=== PATIENT | male | born 1990 | race Hispanic/Latino ===

== ENCOUNTER 2016-12-25 18:41 | Emergency (ER) | payer OTHER ==
[~2016-12-25] VITALS: Ht 170.2 cm; Wt 68.2 kg
[2016-12-25 18:48] VITALS: BP 110/75; PULSE 90; RESP 14; O2SAT 98
--- NOTE | 2016-12-25 19:24 | ED.REPORT ---
HPI-Abd Pain M Under 40 Date of Service Dec 25, 2016 ED Provider: Robert Ingram DO A 26 year old male with a history of smoking and methamphetamine use presents to the ED complaining of abdominal pain. The pain began yesterday after the pt had been eating. He was also drinking alcohol, but this did not seem to exacerbate the pain. By this morning, the pt was unable to eat or drink without vomiting. He also feels bloated but denies hematemesis or any history of appendectomy. Nursing Notes Stated Complaint: ABDOMINAL PAIN, NAUSEA Chief Complaint: Male Abdominal Pain Nursing Notes Reviewed: Yes Allergies: Coded Allergies: No Known Allergies (Unverified , 12/25/16) No Active Prescriptions or Reported Meds General Time Seen by MD: 19:23 Chief Complaint Abdominal pain Hx Obtained From: Patient Arrived By: Walk-in Sudden in Onset?: No Onset Occurred: 1 day ago Symptom Duration: Since onset Recent Healthcare: No recent doctor visit, No recent hospitalization Similar Sx Previous: No Past Medical History Past Medical History None reported. Past Surgical History None reported. Smoking History Current Every Day Smoker Social History Alcohol Use: "Social" Drug Use: Cocaine, Meth Ambulatory Status Independent Review of Systems Review of Systems Note: bloated Constitutional: Denies: Fever Respiratory: Denies: Non-productive cough, Shortness of breath Cardiovascular: Denies: Chest pain GI: Reports: Abdominal pain, Nausea, Vomiting, Denies: Hematemesis Musculoskeletal: Denies: Back pain, Neck pain Complete sys rev & neg: except as marked. Physical Exam Initial Vital Signs Vital Signs (First) Date Time Temp Pulse Resp B/P Pulse Ox O2 Delivery O2 Flow Rate FiO2 12/25/16 18:48 37.7 90 14 110/75 98 Room Air Initial VS: Reviewed General/Constitutional: Awake, Alert Respiratory / Chest: Atraumatic, Breath sounds NL, Breath sounds = bilat, No respiratory distress Cardiovascular: Heart rate NL, Regular rhythm, Heart sounds NL Abdomen: Atraumatic, Soft periumbilical and RLQ tenderness Back: Atraumatic, Full range of motion Head / Eyes: Atraumatic, Normocephalic, PERRL, EOMI ENT: Atraumatic, Airway patent, Mucous membranes moist Neurologic: Oriented X3, Speech NL, No motor deficits, No sensory deficits Neck: Atraumatic, Supple, Full range of motion Upper Extremity / MS: Atraumatic, Full range of motion Lower Extremity / Pelvis / MS: Atraumatic, Full range of motion Skin: Atraumatic, Color NL, No rash, Warm, Dry Psychiatric: Affect NL, Mood NL Interpretation & Diagnostics Lab Results Interpretation Result Diagram: 12/25/16193412/25/161934 Test 12/25/16 19:00 12/25/16 19:35 12/25/16 20:33 Urine Color Yellow (YELLOW) Urine Appearance Clear (CLEAR,HAZY) Urine pH 6.0 (5.0-8.0) Urine Specific [place] 1.020 (1.003-1.035) Urine Protein Negativemg/dL (NEG,TRACE) Urine Glucose (UA) 250mg/dL (NEGATIVE) Urine Ketones Negativemg/dL (NEGATIVE) Urine Occult Blood Negative (NEGATIVE) Urine Nitrite Negative (NEGATIVE) Urine Bilirubin Negative (NEGATIVE) Urine Urobilinogen Normalmg/dL (NORMAL) Urine Leukocyte Esterase Negative (NEGATIVE) Urine RBC 0-2/hpf (0-2) Urine WBC 0-5/hpf (0-5) Urine Epithelial Cells Few/hpf (NONE-MOD) Urine Crystals None seen (NONE SEEN) Urine Bacteria Few/hpf (NONE-FEW) Urine Hyaline Casts None/lpf (NONE) Urine Granular Casts None seen (NONE SEEN) Urine Waxy Casts None seen (NONE SEEN) Urine Red Blood Cell Casts None seen (NONE SEEN) Urine White Blood Cell Casts None seen (NONE SEEN) Urine Mucus Present (None Seen) Urine Trichomonas None seen (NONE SEEN) Urine Yeast None (NONE SEEN) Urinalysis Comment None Urine Culture Reflexed Not indicated Hold Urine Received (Received) White Blood Count 11.3th/mm3 (3.8-10.1) Red Blood Count 5.72mil/mm3 (4.40-5.80) Hemoglobin 16.1g/dL (13.8-17.2) Hematocrit 45.7% (41.0-50.0) Mean Corpuscular Volume 79.9fL (81-100) Mean Corpuscular Hemoglobin 28.1pg (27.0-35.0) Mean Corpuscular Hemoglobin Concent 35.2% (32.0-37.0) Red Cell Distribution Width 12.7% (12.3-15.4) Platelet Count 333bil/L (150-400) Neutrophils (%) (Auto) 89.5% (40-74) Lymphocytes (%) (Auto) 3.7% (14-46) Monocytes (%) (Auto) 6.1% (4-12) Eosinophils (%) (Auto) 0.3% (0-5) Basophils (%) (Auto) 0.1% (0-3) Sodium Level 137mEq/L (134-144) Potassium Level 4.0mEq/L (3.5-5.2) Chloride Level 99mEq/L (97-108) Carbon Dioxide Level 22mmol/L (18-29) Blood Urea Nitrogen 15mg/dL (6-20) Creatinine 0.77mg/dL (0.76-1.27) Estimat Glomerular Filtration Rate 132mL/min (>59) Glucose Level 112mg/dL (60-99) Lactic Acid Level 1.1mmol/L (0.4-2.0) Calcium Level 9.4mg/dL (8.5-10.1) Total Bilirubin 1.0mg/dL (0.0-1.2) Aspartate Amino Transf (AST/SGOT) 22U/L (0-50) Alanine Aminotransferase (ALT/SGPT) 27U/L (0-44) Alkaline Phosphatase 82U/L (25-150) Total Protein 8.0g/dL (6.4-8.4) Albumin 4.8g/dL (3.4-5.0) Lipase 25U/L (13-60) Pulse Oximetry Interpretation Pulse Oximetry Interpretation: 98% on room air Pulse Oximetry: Pulse Ox normal CT Abd / Pelvis Interpretation IMPRESSION: 1. No acute process. No explanation for right lower quadrant pain. 2. Appendix not seen. No evidence of appendicitis. Dictated by: Prosper Parra M.D. on 12/25/2016 at 21:56 Approved by: Prosper Parra M.D. on 12/25/2016 at 21:58 Interpretation / Wet Read by: Interpret - Radiologist Re-Eval/Medical Decision Source of Hx: Old records Re-Evaluation/Progress : Time of Eval: 22:14 Patient Status: Condition improved Re-Evaluation/Progress Note: Pt rechecked, who is resting comfortably. The diagnosis and plan for discharge are discussed. The pt understands and agrees with the plan. All questions are addressed at this time. Counseled Regarding: Diagnosis, Lab results, Need for follow-up, When/why to return to ED Patient Discharge & Departure Primary Impression: Abdominal pain Abdominal location: unspecified location Qualified Code: R10.9 - Unspecified abdominal pain Additional Impression: Vomiting Vomiting type: unspecified Vomiting Intractability: non-intractable Nausea presence: with nausea Qualified Code: R11.2 - Nausea with vomiting, unspecified Disposition: Home Discharge Condition All VS Reviewed: Yes Condition: Stable Patient Instructions: Acute Abdominal Pain (ED), Acute Nausea and Vomiting (ED) , Clear Liquid Diet (ED) Additional Instructions: Your white blood cell count was mildly elevated but your labs were otherwise normal. Your CT scan showed nothing acute but your appendix was not identified. Maintain a clear liquid diet and advance as tolerated. Take 1-2 [place] every 6 hours as needed for severe pain. Do not drive, drink alcohol, or consume acetaminophen while taking the [place]. Start taking Protonix daily. If you are still experiencing pain tomorrow, return to the emergency department for recheck. Otherwise call your primary care physician tomorrow to arrange a follow up appointment this week to discuss your lab findings and H. Pylori testing. Return to the emergency room if you develop any new or worsening symptoms. [facility] Letha Attestation Portions of this note were transcribed by Brea Jackson. I, Dr. Ingram personally performed the history, physical exam and medical decision-making; I reviewed and confirmed the accuracy of the information in the transcribed note. Signed by: Letha Moss, 12/25/2016 and 2225. copies to: [facility] Todd P DO Dec 25, 2016 19:24 BREA JACKSON Dec 25, 2016 20:21
[2016-12-25] MEDS ORDERED: 0.9% Sodium Chloride 1,000 ML IV ONE (19:36)
[2016-12-25] MEDS ORDERED: Pantoprazole 4 mg/mL 10 mL Inj IVPUSH ONE (19:40)
[2016-12-25] MEDS: Ondansetron 2 mg/mL 2 mL Inj IVPUSH PRN ×2 (19:51→20:35)
[2016-12-25 20:05] LABS: BASOPHILS % (AUTO) 0.1 % (0-3); EOSINOPHILS % (AUTO) 0.3 % (0-5); MONOCYTES % (AUTO) 6.1 % (4-12); Mean Corpuscular Hemoglobin 28.1 pg (27.0-35.0); Mean Corpuscular Volume 79.9 fL (81-100); NEUTROPHILS % (AUTO) 89.5 % (40-74); Platelet Count 333 bil/L (150-400)
[2016-12-25] MEDS ORDERED: Iohexol 300 mg/mL 30 mL Inj PO ONE (20:20)
[2016-12-25] MEDS ORDERED: Ondansetron 2 mg/mL 2 mL Inj IVPUSH PRN (20:20)
[2016-12-25 20:28] LABS: APPEARANCE,URINE CLEAR (CLEAR,HAZY); COLOR,URINE YELLOW (YELLOW); OCCULT BLOOD,URINE NEGATIVE (NEGATIVE); UROBILINOGEN,URINE NORMAL (NORMAL)
[2016-12-25] MEDS: HYDROmorphone 0.5 mg/0.5 mL iSecure Syringe IVPUSH PRN ×2 (20:32→21:51)
[2016-12-25 21:46] VITALS: BP 123/63; PULSE 91; O2SAT 99
--- NOTE | 2016-12-25 21:59 | DRSVH ---
PROCEDURE: CT ABDOMEN AND PELVIS WITH CONTRAST ([id number]) INDICATIONS: periumbillical pain, RLQ tenderness, vomiting TECHNIQUE: After the administration of oral and intravenous contrast, 5 mm thick sections acquired from the diap hragms to the symphysis. 5 mm thick coronal and sagittal reformats were performed. For radiation do se reduction, the following was used: automated exposure control, adjustment of mA and/or kV accordi ng to patient size. COMPARISON: None. FINDINGS: Image quality: Excellent. ABDOMEN: Lung bases: Lung bases are clear. Heart size is normal. Solid organs: Liver and spleen are normal in size and enhancement. Gallbladder is within normal linder its. Biliary system is non-dilated. Pancreas enhances normally. No adrenal nodules. Kidneys are n ormal in size and enhancement, without hydronephrosis. Peritoneum and bowel: Stomach, small bowel, and colon loops are normal in caliber and wall thickness . No free fluid or air. Appendix not seen. No evidence of appendicitis. Nodes and vessels: No retroperitoneal or mesenteric adenopathy. Aorta and inferior vena cava are no rmal in caliber. Miscellaneous: No ventral hernias. PELVIS: Genitourinary: Bladder wall thickness is normal. Miscellaneous: No inguinal hernias or adenopathy. Bones: No suspicious bony lesions. No vertebral body compression fractures. IMPRESSION: 1. No acute process. No explanation for right lower quadrant pain. 2. Appendix not seen. No evidence of appendicitis. Dictated by: Prosper Parra M.D. on 12/25/2016 at 21:56 Approved by: Prosper Parra M.D. on 12/25/2016 at 21:58
[2016-12-25] MEDS ORDERED: _Ondansetron ODT 4 mg Tablet PO PRN (22:00)
[2016-12-25] MEDS ORDERED: _HYDROcodone/APAP 5-325 mg Tablet PO PRN (22:00)
[2016-12-25 22:28] VITALS: BP 119/61; PULSE 82; O2SAT 100
[2016-12-25 22:34] VITALS: BP 119/61; PULSE 82; O2SAT 100
== END 2016-12-25 22:40 | disposition home or self-care (01) ==
LOC: SED 18:41
DX: R10.31 Right lower quadrant pain (principal); R10.33 Periumbilical pain; R11.2 Nausea with vomiting, unspecified; F17.200 Nicotine dependence, unspecified, uncomplicated
CPT/HCPCS: 36415; 74177; 80053; 81000; 83605; 83690; 85025; 86677; 96361; 96374; 96375; 96376; 99285; J1170; J2405; J7030; Q9967

== ENCOUNTER 2017-01-04 17:12 | Emergency (ER) | payer OTHER ==
[2017-01-04 17:15] VITALS: BP 114/80; PULSE 97; RESP 16; O2SAT 98
--- NOTE | 2017-01-04 18:06 | ED.REPORT ---
HPI-Abd Pain M Under 40 Date of Service Jan 04, 2017 ED Provider: Nikolay Gardner MD History of Present Illness: stomach hurts ongoing for a week, nausea. primary care is shan. no apointment with GI. feels full Nursing Notes Stated Complaint: STOMACH Chief Complaint: Male Abdominal Pain Nursing Notes Reviewed: Yes Allergies: Coded Allergies: No Known Allergies (Unverified , 01/04/17) No Active Prescriptions or Reported Meds General Time Seen by MD: 18:06 Chief Complaint Abdominal pain Hx Obtained From: Patient Sudden in Onset?: No Past Medical History Past Medical History None reported. Past Surgical History Reports: Appendectomy Smoking History Current Every Day Smoker Social History Alcohol Use: "Social" Drug Use: Cocaine, Meth Occupation lives with girlfriend, no work or school at this time 01/04/2017 Ambulatory Status Independent Review of Systems Basic Review of Systems Eyes: Vision NL, No discharge Skin: No bruising, No rash, No itch Psychiatric: Normal thought content Physical Exam Initial Vital Signs Vital Signs (First) Date Time Temp Pulse Resp B/P Pulse Ox O2 Delivery O2 Flow Rate FiO2 01/04/17 17:15 36.8 97 16 114/80 98 Room Air Initial VS: Reviewed, Vital signs normal Head / Eyes: Atraumatic, Normocephalic, PERRL ENT: Mucous membranes moist, Conjunctiva normal, No scleral icterus Neck: Supple, Non-tender, Full range of motion Lymphatic: No lymphadenopathy Extremities: Vascular intact, Neuro intact, No swelling, No tenderness Skin: Warm, Dry, No cyanosis Neurologic: Alert, Oriented, Nonfocal Psychiatric: Mood/affect normal, Behavior normal, Normal thought content General/Constitutional: Awake, Alert, No acute distress, Well appearing, Well developed, Well hydrated, Well nourished, Cooperative, Not toxic appearing Respiratory / Chest: Atraumatic, Breath sounds NL, Breath sounds = bilat, No respiratory distress Cardiovascular: Heart rate NL, Regular rhythm, Heart sounds NL, No gallop Abdomen: Atraumatic, Soft Tenderness/Guarding/Rebound: Positive: Tender periumbilical Back: Atraumatic, Inspection NL, Full range of motion Interpretation & Diagnostics Lab Results Interpretation Result Diagram: 01/04/17 1820 01/04/17 1820 Test 01/04/17 18:20 01/04/17 19:27 White Blood Count 9.1th/mm3 (3.8-10.1) Red Blood Count 5.66mil/mm3 (4.40-5.80) Hemoglobin 15.9g/dL (13.8-17.2) Hematocrit 45.7% (41.0-50.0) Mean Corpuscular Volume 80.7fL (81-100) Mean Corpuscular Hemoglobin 28.1pg (27.0-35.0) Mean Corpuscular Hemoglobin Concent 34.8% (32.0-37.0) Red Cell Distribution Width 12.9% (12.3-15.4) Platelet Count 361bil/L (150-400) Neutrophils (%) (Auto) 78.9% (40-74) Lymphocytes (%) (Auto) 11.8% (14-46) Monocytes (%) (Auto) 8.7% (4-12) Eosinophils (%) (Auto) 0.1% (0-5) Basophils (%) (Auto) 0.1% (0-3) Sodium Level 137mEq/L (134-144) Potassium Level 4.2mEq/L (3.5-5.2) Chloride Level 99mEq/L (97-108) Carbon Dioxide Level 25mmol/L (18-29) Blood Urea Nitrogen 10mg/dL (6-20) Creatinine 0.83mg/dL (0.76-1.27) Estimat Glomerular Filtration Rate 121mL/min (>59) Glucose Level 104mg/dL (60-99) Calcium Level 9.5mg/dL (8.5-10.1) Total Bilirubin 1.3mg/dL (0.0-1.2) Aspartate Amino Transf (AST/SGOT) 23U/L (0-50) Alanine Aminotransferase (ALT/SGPT) 37U/L (0-44) Alkaline Phosphatase 80U/L (25-150) Total Protein 8.1g/dL (6.4-8.4) Albumin 4.7g/dL (3.4-5.0) Amylase Level 53U/L (28-100) Lipase 24U/L (13-60) Hold Parker Top Tube Received (Received) X-Ray Interpretation Xray Interpretation: ROCEDURE: X-RAY ACUTE ABDOMINAL SERIES ([id number]) INDICATIONS: abd pain TECHNIQUE: One view chest and two views of the abdomen were acquired. COMPARISON: None. FINDINGS: Surgical changes and devices: There are surgical sutures in the right lower quadrant.. Chest: Lungs are clear. Heart size is normal. No pleural effusions. No pneumoperitoneum. Abdomen: Bowel gas pattern is nonobstructive with abundant colonic gas and paucity of small bowel gas. Moderate amount of stool in rectum. No suspicious calcifications. Visualized solid organ contours appear normal. Bones: No suspicious bony lesions. IMPRESSION: Nonspecific, nonobstructive bowel gas pattern. Dictated by: Sebastian Gaona M.D. on 01/04/2017 at 18:48 Approved by: Sebastian Gaona M.D. on 01/04/2017 at 18:50 Re-Eval/Medical Decision Med Decision/Clinical Course 26 year old male presents for evualtion of abd pain. Seen 12/27 for same. workup at that time was negative including CT scan, labs and h plyoric. No sign of appendicitis or gastritis. Patient Discharge & Departure Primary Impression: Generalized abdominal pain Disposition: Home Patient Instructions: Acute Abdominal Pain (ED), High Fiber Diet (ED) Additional Instructions: Your labs are normal. The urine does not show any sign of infection but additional testing is being done on the urine. If anything turns positive, we will contact you. The abdominal x-ray shows that you have a large amount of gas in your mid belly. It also shows a large ball of stool just ready to come out. You have been given 1/2 a bottle of magnesium citrate in the ER. this will help move the stool along. Also reglan after every meal will help move things also. A warm blanket on your belly will also relax the muscles. Please call [facility] for follow up in a week. Add high fiber to your diet. You can add from the list provided. Referrals: [facility] ([facility]P) EDSupervising Provider for APC: Nikolay Gardner MD copies to: [facility] Yaritza Martinez Jan 04, 2017 18:06
[2017-01-04 18:30] LABS: BASOPHILS % (AUTO) 0.1 % (0-3); EOSINOPHILS % (AUTO) 0.1 % (0-5); MONOCYTES % (AUTO) 8.7 % (4-12); Mean Corpuscular Hemoglobin 28.1 pg (27.0-35.0); Mean Corpuscular Volume 80.7 fL (81-100); NEUTROPHILS % (AUTO) 78.9 % (40-74); Platelet Count 361 bil/L (150-400)
--- NOTE | 2017-01-04 18:51 | DRSVH ---
PROCEDURE: X-RAY ACUTE ABDOMINAL SERIES ([id number]) INDICATIONS: abd pain TECHNIQUE: One view chest and two views of the abdomen were acquired. COMPARISON: None. FINDINGS: Surgical changes and devices: There are surgical sutures in the right lower quadrant.. Chest: Lungs are clear. Heart size is normal. No pleural effusions. No pneumoperitoneum. Abdomen: Bowel gas pattern is nonobstructive with abundant colonic gas and paucity of small bowel ga s. Moderate amount of stool in rectum. No suspicious calcifications. Visualized solid organ contour s appear normal. Bones: No suspicious bony lesions. IMPRESSION: Nonspecific, nonobstructive bowel gas pattern. Dictated by: Sebastian Gaona M.D. on 01/04/2017 at 18:48 Approved by: Sebastian Gaona M.D. on 01/04/2017 at 18:50
[2017-01-04 20:03] VITALS: BP 112/77; PULSE 72; RESP 16; O2SAT 98
== END 2017-01-04 20:04 | disposition home or self-care (01) ==
LOC: SED 17:12
DX: R10.84 Generalized abdominal pain (principal); F17.200 Nicotine dependence, unspecified, uncomplicated
CPT/HCPCS: 36415; 74022; 80053; 82150; 83690; 85025; 87491; 87591; 96372; 99284; J1885

== ENCOUNTER 2017-02-12 14:42 | Emergency (ER) | payer OTHER ==
[~2017-02-12] VITALS: Ht 170.2 cm; Wt 68.2 kg
[2017-02-12 15:03] VITALS: PULSE 78; RESP 16; O2SAT 95
[2017-02-12] MEDS ORDERED: Trimethoprim-Sulfa 160 mg-800 mg Tablet PO ONE (15:35)
--- NOTE | 2017-02-12 15:47 | ED.REPORT ---
HPI-Rash / Abscess Date of Service February 12, 2017 ED Provider: Padma Aguilar History of Present Illness: 23-year-old male here for rash/abscess on his right gluteus. Present for about a week. He gets these often he recently had one that drained purulent drainage on his knee as well. He has had no fever or vomiting. He has had a stomach ache although he states he has stomach issues and this is not new. Denies IV drug use. He is up-to-date on his immunizations. Nursing Notes Stated Complaint: RASH ON BODY Chief Complaint: Skin Rash/Abscess Allergies: Coded Allergies: No Known Allergies (Unverified , 02/12/17) Scheduled Sulfamethoxazole/Trimeth 800-160 mg (Bactrim DS 800-160 mg) 1 Each Tablet 1 TABLET PO BID Scheduled PRN Ibuprofen (Ibuprofen) 800 Mg Tablet 800 MG PO TID PRN PRN For Pain General Time Seen by MD: 15:25 Chief Complaint Abscess, Rash Hx Obtained From: Patient Arrived By: Walk-in Onset Occurred: 1 week ago Location: : Buttock Severity: Current: Moderate Severity: Maximum: Severe Associated with: Reports Abdominal pain, Denies Fever, Denies Nausea, Denies Vomiting Pertinent Negative: Pt denies other symptoms Similar Sx Previous: Yes Past Medical History Past Medical History None reported. Past Surgical History Reports: Appendectomy Smoking History Current Every Day Smoker Social History Alcohol Use: "Social" Drug Use: Cocaine, Meth Occupation lives with girlfriend, no work or school at this time 01/04/2017 Ambulatory Status Independent Review of Systems Basic Review of Systems : No dysuria, No frequency Neurologic: NL mental status, No weakness, No numbness Psychiatric: Normal thought content Constitutional: Denies: Chills, Fatigue, Fever Respiratory: Denies: Dyspnea on exertion Cardiovascular: Denies: Chest pain GI: Reports: Abdominal pain, Denies: Diarrhea, Nausea, Vomiting Skin: Reports Rash Complete sys rev & neg: except as marked. Male: Denies Dysuria Physical Exam Initial Vital Signs Vital Signs (First) Date Time Temp Pulse Resp B/P Pulse Ox O2 Delivery O2 Flow Rate FiO2 02/12/17 15:03 36.6 78 16 95 Room Air Initial VS: Reviewed, Vital signs normal Head / Eyes: Atraumatic, Normocephalic, PERRL ENT: Mucous membranes moist, Conjunctiva normal, No scleral icterus Neck: Supple, Non-tender, Full range of motion Respiratory: Breath sounds normal, Clear to auscultation, No respiratory distress Cardiovascular: Regular rate & rhythm, Heart sounds normal, Intact distal pulses Extremities: Vascular intact, Neuro intact, No swelling, No tenderness Neurologic: Alert, Oriented, Nonfocal Psychiatric: Mood/affect normal, Behavior normal, Normal thought content Skin: Color NL, Warm, Dry, Intact, Turgor NL Rash / Lesion Notes: 4 small erythematous abscesses present on right gluteus. Largest about the size of a nickel. No heads present but there is tender induration. Rash / Lesion Location: Positive: Buttocks Discharge & Departure Shift Change Sign-Out Response to Therapy: Improved Impression: Primary Impression: Abscess Disposition: Home Discharge Condition All VS Reviewed: Yes Condition: Stable Patient Instructions: Abscess (GEN) Additional Instructions: Apply warm packs to abscesses as discussed, take warm baths. Do not pop abscesses, let them drain naturally. Take antibiotics as prescribed. Return to ER if worsening, fevers, vomiting otherwise follow up with PCP if not improving early next week. Take ibuprofen 800 mg 3 times a day as needed for pain Referrals: [facility] ([facility]) EDSupervising Provider for APC: Huseyin Dahl MD, Linnea K ARNP February 12, 2017 15:47
[2017-02-12] MEDS ORDERED: SULF1TAB35 PO (15:49)
[2017-02-12] MEDS ORDERED: IBUP800T28 PO (16:02)
== END 2017-02-12 16:05 | disposition home or self-care (01) ==
LOC: SED 14:42
DX: L02.31 Cutaneous abscess of buttock (principal); F17.200 Nicotine dependence, unspecified, uncomplicated

== ENCOUNTER 2017-03-01 20:15 | Emergency (ER) | payer OTHER ==
[~2017-03-01] VITALS: Ht 170.2 cm; Wt 72.7 kg
[~2017-03-01 20:15] MED LIST: IBUP800T28 PO; SULF1TAB35 PO
[2017-03-01 20:22] VITALS: BP 123/72; PULSE 73; RESP 16; O2SAT 96
--- NOTE | 2017-03-01 21:28 | DRSVH ---
PROCEDURE: X-RAY RIGHT WRIST COMPLETE, MINIMUM THREE VIEWS ([id number]) INDICATIONS: pain/numbness TECHNIQUE: 4 views of the wrist were acquired. COMPARISON: None. FINDINGS: Bones: No fractures or dislocations. No suspicious bony lesions. Scaphoid view: No abnormality is seen of the navicular. Soft tissues: No suspicious soft tissue calcifications. IMPRESSION: No abnormality is appreciated in these 4 views of the right wrist. Dictated by: Sky Wagner M.D. on 03/01/2017 at 21:26 Approved by: Sky Wagner M.D. on 03/01/2017 at 21:27
== END 2017-03-01 22:28 | disposition left against medical advice (07) ==
LOC: SED 20:15
DX: R20.0 Anesthesia of skin (principal); Z53.21 Procedure and treatment not carried out due to patient leaving prior to being seen by health care provider

== ENCOUNTER 2017-03-14 22:58 | Emergency (ER) | payer OTHER ==
[~2017-03-14] VITALS: Ht 172.7 cm; Wt 72.7 kg
[2017-03-14 23:01] VITALS: BP 113/76; PULSE 68; RESP 18; O2SAT 99
[2017-03-14 23:35] LABS: BASOPHILS % (AUTO) 0.3 % (0-3); EOSINOPHILS % (AUTO) 2.5 % (0-5); MONOCYTES % (AUTO) 7.2 % (4-12); Mean Corpuscular Hemoglobin 27.8 pg (27.0-35.0); Mean Corpuscular Volume 82.6 fL (81-100); Platelet Count 305 bil/L (150-400)
--- NOTE | 2017-03-14 23:44 | ED.REPORT ---
HPI-Dyspnea / Wheezing Date of Service Mar 14, 2017 ED Provider: Earnest Gold MD Patient is a 26 year old male who presents to the ED complaining of left chest pain for the past 3 days. Associated symptoms include intermittent shortness of breath and pain that radiates into his arm. He describes the pain as a pressure that is painful to the touch. The patient reports that he was concerned because he was told 3 years ago that he has high cholesterol but he hasn't his diet or activity. Nursing Notes Stated Complaint: SHORT OF BREATH, CHEST PAIN Chief Complaint: Respiratory Complaints Nursing Notes Reviewed: Yes Allergies: Coded Allergies: No Known Allergies (Unverified , 03/14/17) No Active Prescriptions or Reported Meds General Time Seen by MD: 23:35 Chief Complaint Chest pain Hx Obtained From: Patient Arrived By: Walk-in Sudden in Onset?: Yes Onset Occurred: 3 days ago Symptom Duration: Intermittent Location: : Chest left Quality: Pressure Recent Healthcare: No recent hospitalization, Recent doctor visit Similar Sx Previous: No Past Medical History Past Medical History None reported. Past Surgical History Reports: Appendectomy Smoking History Current Every Day Smoker Social History Alcohol Use: Denies alcohol use Drug Use: Denies drug use Occupation lives with girlfriend, no work or school at this time 01/04/2017 Ambulatory Status Independent Review of Systems Constitutional: Denies: Chills, Fever Respiratory: Reports: Shortness of breath, Denies: Non-productive cough, Wheezing Cardiovascular: Reports: Chest pain Musculoskeletal: Reports: Extremity pain Skin: Denies Itching, Denies Rash Complete sys rev & neg: except as marked. Physical Exam Initial Vital Signs Vital Signs (First) Date Time Temp Pulse Resp B/P Pulse Ox O2 Delivery O2 Flow Rate FiO2 03/14/17 23:01 36 68 18 113/76 99 Room Air Initial VS: Reviewed, Vital signs normal General/Constitutional: Awake, Alert, No acute distress Behavior: Positive: Anxious Neck: Atraumatic, Supple, Full range of motion Respiratory / Chest: Atraumatic, Breath sounds NL, Breath sounds = bilat, No respiratory distress 3rd left costal cartilage tenderness Cardiovascular: Heart rate NL, Regular rhythm, Heart sounds NL Abdomen: Atraumatic, Soft, Non-tender Skin: Atraumatic, Color NL, No rash, Warm, Dry Neurologic: Oriented X3, Speech NL, No motor deficits, No sensory deficits Head / Eyes: Atraumatic, Normocephalic, PERRL, EOMI Psychiatric: Affect NL, Mood NL Interpretation & Diagnostics Lab Results Interpretation Result Diagram: 03/14/17232403/14/172324 Test 03/14/17 23:25 White Blood Count 7.7th/mm3 (3.8-10.1) Red Blood Count 5.07mil/mm3 (4.40-5.80) Hemoglobin 14.1g/dL (13.8-17.2) Hematocrit 41.9% (41.0-50.0) Mean Corpuscular Volume 82.6fL (81-100) Mean Corpuscular Hemoglobin 27.8pg (27.0-35.0) Mean Corpuscular Hemoglobin Concent 33.7% (32.0-37.0) Red Cell Distribution Width 12.8% (12.3-15.4) Platelet Count 305bil/L (150-400) Neutrophils (%) (Auto) 52.0% (40-74) Lymphocytes (%) (Auto) 36.8% (14-46) Monocytes (%) (Auto) 7.2% (4-12) Eosinophils (%) (Auto) 2.5% (0-5) Basophils (%) (Auto) 0.3% (0-3) D-Dimer < 0.50mg/L FEU (<0.50) Sodium Level 140mEq/L (134-144) Potassium Level 4.0mEq/L (3.5-5.2) Chloride Level 103mEq/L (97-108) Carbon Dioxide Level 23mmol/L (18-29) Blood Urea Nitrogen 14mg/dL (6-20) Creatinine 0.76mg/dL (0.76-1.27) Estimat Glomerular Filtration Rate 134mL/min (>59) Glucose Level 108mg/dL (60-99) Calcium Level 8.8mg/dL (8.5-10.1) Magnesium Level 2.1mg/dL (1.6-2.6) Total Bilirubin 0.3mg/dL (0.0-1.2) Aspartate Amino Transf (AST/SGOT) 29U/L (0-50) Alanine Aminotransferase (ALT/SGPT) 45U/L (0-44) Alkaline Phosphatase 83U/L (25-150) Troponin T 0.010ug/L (0.0-0.011) Total Protein 7.1g/dL (6.4-8.4) Albumin 4.1g/dL (3.4-5.0) Hold Parker Top Tube Received (Received) Lab values outside NL range: no clinical significance. Lab Results Interpretation: Negative d-dimer, negative troponin ECG Interpretation Time: 23:13 Normal ECG Interpretation: Normal rate (69), Normal sinus rhythm X-Ray Chest Interpretation Chest Xray Interpretation: no signs of acute disease View: Portable, 1 view Interpretation / Wet Read by: Wet read ED physician Re-Eval/Medical Decision Med Decision/Clinical Course 26-year-old male who describes his life as stressful. He has left upper chest wall tenderness consistent with costochondritis. He is actively overbreathing and sighing during the interview. He appears quite anxious. Chest x-ray is negative. EKG shows no evidence of ischemia. Troponin and d-dimer are both negative. He will use anti-inflammatories for the costochondritis and follow up with his regular doctor. Re-Evaluation/Progress : Time of Eval: 00:42 Re-Evaluation/Progress Note: Discussed results and plan for discharge. The patient understands and agrees to the plan. All questions were addressed. Counseled Regarding: Diagnosis, Lab results, Need for follow-up, When/why to return to ED Discharge & Departure Impression: Primary Impression: Costochondritis, acute Disposition: Home Discharge Condition All VS Reviewed: Yes Condition: Stable Patient Instructions: Costochondritis (ED) Additional Instructions: Testing shows no evidence of serious heart or lung disease. Your symptoms are from inflammation of the rib joints, called costochondritis. Ibuprofen (Motrin ) 400 mg 3-4 times daily as needed, to be purchased [id number]. Referrals: [facility] (PCP) Coltenibe Attestation Portions of this note were transcribed by Liv Torres. I, Dr. Gold personally performed the history, physical exam and medical decision-making; I reviewed and confirmed the accuracy of the information in the transcribed note. Signed by:Letha Canada, 03/15/17 and 0050 copies to: [facility] Howard L MD Mar 14, 2017 23:44 Dayanara Torres Mar 14, 2017 23:52
[2017-03-15 00:23] LABS: Magnesium 2.1 mg/dL (1.6-2.6); TROPONIN T 0.01 ug/L (0.0-0.011)
--- NOTE | 2017-03-15 08:39 | DRSVH ---
PROCEDURE: X-RAY CHEST, TWO VIEWS ([id number]) INDICATIONS: chest pain TECHNIQUE: 2 views of the chest were acquired. COMPARISON: [facility], CR, XR CHEST 1VW (PORTABLE), 05/22/2016, 3:15. FINDINGS: Surgical changes and devices: None. Lungs and pleura: No pleural effusions or pneumothorax. Lungs are clear. Mediastinum: Mediastinal contours are normal. Heart size is normal. Bones and chest wall: No suspicious bony abnormalities. Soft tissues appear unremarkable. IMPRESSION: Negative chest. No acute cardiopulmonary process is evident. Dictated by: Dez Lopez M.D. on 03/15/2017 at 8:37 Approved by: Dez Lopez M.D. on 03/15/2017 at 8:37
== END 2017-03-15 01:09 | disposition home or self-care (01) ==
LOC: SED 22:58
DX: M94.0 Chondrocostal junction syndrome [Tietze] (principal); R06.02 Shortness of breath; F17.200 Nicotine dependence, unspecified, uncomplicated

== ENCOUNTER 2017-04-26 06:52 | Emergency (ER) | payer OTHER ==
[~2017-04-26] VITALS: Ht 170.2 cm; Wt 75.0 kg
[2017-04-26 07:04] VITALS: BP 129/76; RESP 16; O2SAT 99
--- NOTE | 2017-04-26 07:55 | ED.REPORT ---
HPI-General Illness Date of Service Apr 26, 2017 ED Provider: Jourdan Moon DO The pt is a 26 y/o male presenting to the ED complaining of a sore throat. He is also experiencing a headache, diarrhea, chest pain, and pain w/ swallowing but is still able to eat or drink. Denies a cough. The pt was also diagnosed w/ genital herpes in January (3 months ago) and reports taking his medication sometimes. He last took his medications two days ago. Nursing Notes Stated Complaint: SWOLLEN THROAT/HEAD PAIN Chief Complaint: ENT & Mouth Nursing Notes Reviewed: Yes Allergies: Coded Allergies: No Known Allergies (Unverified , 03/14/17) No Active Prescriptions or Reported Meds General Time Seen by MD: 07:16 Chief Complaint Sore throat Hx Obtained From: Patient Sudden in Onset?: Yes Symptom Duration: Since onset Recent Healthcare: No recent hospitalization, Recent doctor visit Similar Sx Previous: No Past Medical History Past Medical History Cellulitis Costochondritis Genital herpes Past Surgical History Reports: Appendectomy Smoking History Current Every Day Smoker Social History Alcohol Use: Denies alcohol use Drug Use: Denies drug use Occupation lives with girlfriend, no work or school at this time 01/04/2017 Ambulatory Status Independent Review of Systems Full Review of Systems Ears / Nose / Throat: Reports: Sore throat Respiratory: Denies: Non-productive cough Cardiovascular: Reports: Chest pain GI: Reports: Diarrhea Neurologic: Reports: Headache Complete sys rev & neg: except as marked. Physical Exam Vital Signs Vital Signs Date Time Temp Pulse Resp B/P Pulse Ox O2 Delivery O2 Flow Rate FiO2 04/26/17 08:14 84 19 97 Room Air 04/26/17 07:04 36.7 71 16 129/76 99 Room Air Initial VS: Reviewed General/Constitutional: Well-developed, Well-nourished Head / Eyes: Atraumatic, Normocephalic, PERRL Cardiovascular: Regular rate & rhythm, Heart sounds normal, Intact distal pulses Abdomen / GI: Soft, Non-tender, No guarding, No rebound, No distention Extremities: Vascular intact, Neuro intact, No swelling, No tenderness Skin: Warm, Dry, No cyanosis Neurologic: Alert, Oriented, Nonfocal Psychiatric: Mood/affect normal, Behavior normal, Normal thought content Head / Eyes: Atraumatic, Normocephalic No trismus ENT: Airway patent, Mucous membranes moist Tonsilar hypertrophy and erythema No patchy exudates No peritonsilar swelling Uvula midline Neck: Supple, Full range of motion No cervical adenopathy No pain w/ manipulation of hyoid Respiratory / Chest: Atraumatic, Breath sounds NL, Breath sounds = bilat Chest wall tenderness to palpation Re-Eval/Medical Decision Med Decision/Clinical Course Signs and symptoms and physical exam suggests a viral pharyngitis. Vital signs are stable. Patient will be discharged. Return precautions given. Time of Eval: 08:05 Re-Evaluation/Progress Note: Pt rechecked. Informed pt of plan for treatment. Pt understands and agrees with plan for treatment. F/U instructions and RTER warnings given. All questions addressed. Counseled Regarding: Diagnosis, Lab results, Need for follow-up, When/why to return to ED Discharge & Departure Primary Impression: Pharyngitis Pharyngitis/tonsillitis etiology: unspecified etiology Qualified Code: J02.9 - Acute pharyngitis, unspecified Disposition: Home Discharge Condition All VS Reviewed: Yes Condition: Stable Additional Instructions: You most likely have a viral throat infection. Viruses do not respond to antibiotics. There is no evidence of strep throat. Tylenol and ibuprofen [id number] as needed. Try sipping on cool liquids as this will help your throat. Follow-up with your primary care doctor in the next 2 days for recheck if you are not feeling better. The ER if you develop high fever, lethargy, inability to swallow, or other concerns [facility] Scribe Attestation Thank for you entrusting us with your care today. You were diagnosed with pharyngitis. Your test showed that you do not have a strep throat. You can take Tylenol and Ibuprofen as needed. Follow up with your primary care provider with any further questions. Please return to the emergency department if you experience any new or worsening symptoms. I hope you feel better soon. copies to: [facility] Timothy S DO Apr 26, 2017 07:55 Alex Lopez Apr 26, 2017 07:57
[2017-04-26 08:14] VITALS: PULSE 84; RESP 19; O2SAT 97
== END 2017-04-26 08:14 | disposition home or self-care (01) ==
LOC: SED 06:52
DX: J02.9 Acute pharyngitis, unspecified (principal); R51 Headache; R07.89 Other chest pain; F17.200 Nicotine dependence, unspecified, uncomplicated

== ENCOUNTER 2017-05-04 18:50 | Emergency (ER) | payer OTHER ==
[~2017-05-04] VITALS: Ht 170.2 cm; Wt 68.2 kg
[2017-05-04 19:06] VITALS: BP 123/69; PULSE 72; RESP 20; O2SAT 98
[2017-05-04 19:25] VITALS: BP 121/75; PULSE 102; RESP 16; O2SAT 99
[2017-05-04 20:02] LABS: BASOPHILS % (AUTO) 0.2 % (0-3); EOSINOPHILS % (AUTO) 0.7 % (0-5); MONOCYTES % (AUTO) 5.8 % (4-12); Mean Corpuscular Hemoglobin 28.4 pg (27.0-35.0); NEUTROPHILS % (AUTO) 82.8 % (40-74); Platelet Count 316 bil/L (150-400)
--- NOTE | 2017-05-04 20:16 | ED.REPORT ---
HPI-Abd Pain M Under 40 Date of Service May 04, 2017 ED Provider: Jewel Carballo MD Patient is a 26 year old male who presents to the ED complaining of left upper quadrant abdominal pain onset this morning. Associated symptoms include pain that radiates into the epigastric region, headache and dysuria. He denies vomiting, hematochezia, hematemesis, diarrhea or black/tarry stool. Patient reports that the pain is exacerbated when he tries to eat or drink liquids. He also states that he has had this pain before but it is worse this time. Nursing Notes Stated Complaint: LEFT SIDE PAIN Chief Complaint: Male Abdominal Pain Nursing Notes Reviewed: Yes Allergies: Coded Allergies: No Known Allergies (Unverified , 03/14/17) Scheduled Famotidine (Pepcid) 20 Mg Tablet 20 MG PO BID Ondansetron ODT (Ondansetron ODT) 4 Mg Tab.rapdis 4 MG PO QID General Time Seen by MD: 20:14 Chief Complaint Abdominal pain Hx Obtained From: Patient Arrived By: Walk-in Sudden in Onset?: Yes Onset Occurred: 1 - 4 hours ago Symptom Duration: Since onset Location: : LUQ Quality: Painful Radiation: : Epigastric Severity: Current: Moderate Exacerbated by: Eating Recent Healthcare: Recent doctor visit Similar Sx Previous: Yes Past Medical History Past Medical History Cellulitis Costochondritis Genital herpes Past Surgical History Reports: Appendectomy Smoking History Current Every Day Smoker Social History Alcohol Use: Denies alcohol use Drug Use: Denies drug use Occupation lives with girlfriend, no work or school at this time 01/04/2017 Ambulatory Status Independent Review of Systems GI: Reports: Abdominal pain, Denies: Bloody/tarry stool, Diarrhea, Hematemesis, Hematochezia, Nausea, Vomiting Male: Reports Dysuria Complete sys rev & neg: except as marked. Skin: Denies Itching, Denies Rash Neurologic: Reports: Headache Physical Exam Initial Vital Signs Vital Signs (First) Date Time Temp Pulse Resp B/P Pulse Ox O2 Delivery O2 Flow Rate FiO2 05/04/17 19:25 37.6 102 16 121/75 99 Room Air Initial VS: Reviewed General/Constitutional: Awake, Alert Respiratory / Chest: Atraumatic, Breath sounds NL, Breath sounds = bilat, No respiratory distress Cardiovascular: Heart rate NL (92), Regular rhythm, Heart sounds NL, No gallop , No murmurs, No rubs Abdomen: Atraumatic, Soft Tenderness/Guarding/Rebound: Positive: Tender LUQ..., Tender epigastric Back: Atraumatic, No CVA tenderness Head / Eyes: Atraumatic, Normocephalic, PERRL, EOMI Neurologic: Oriented X3, Speech NL, No motor deficits, No sensory deficits Skin: Atraumatic, Color NL, No rash, Warm, Dry Psychiatric: Affect NL, Mood NL Interpretation & Diagnostics Lab Results Interpretation Result Diagram: 05/04/17195805/04/171958 Test 05/04/17 19:55 05/04/17 19:59 05/04/17 20:00 05/04/17 20:36 Hold Urine Received (Received) White Blood Count 10.8th/mm3 (3.8-10.1) Red Blood Count 5.10mil/mm3 (4.40-5.80) Hemoglobin 14.5g/dL (13.8-17.2) Hematocrit 41.3% (41.0-50.0) Mean Corpuscular Volume 81.0fL (81-100) Mean Corpuscular Hemoglobin 28.4pg (27.0-35.0) Mean Corpuscular Hemoglobin Concent 35.1% (32.0-37.0) Red Cell Distribution Width 12.9% (12.3-15.4) Platelet Count 316bil/L (150-400) Neutrophils (%) (Auto) 82.8% (40-74) Lymphocytes (%) (Auto) 9.8% (14-46) Monocytes (%) (Auto) 5.8% (4-12) Eosinophils (%) (Auto) 0.7% (0-5) Basophils (%) (Auto) 0.2% (0-3) Sodium Level 139mEq/L (134-144) Potassium Level 4.2mEq/L (3.5-5.2) Chloride Level 101mEq/L (97-108) Carbon Dioxide Level 25mmol/L (18-29) Blood Urea Nitrogen 15mg/dL (6-20) Creatinine 0.89mg/dL (0.76-1.27) Estimat Glomerular Filtration Rate 112mL/min (>59) Glucose Level 102mg/dL (60-99) Calcium Level 9.1mg/dL (8.5-10.1) Magnesium Level 2.0mg/dL (1.6-2.6) Total Bilirubin 0.6mg/dL (0.0-1.2) Aspartate Amino Transf (AST/SGOT) 29U/L (0-50) Alanine Aminotransferase (ALT/SGPT) 28U/L (0-44) Alkaline Phosphatase 90U/L (25-150) Total Protein 8.4g/dL (6.4-8.4) Albumin 4.7g/dL (3.4-5.0) Lipase 38U/L (13-60) Hold Parker Top Tube Received (Received) Urine Color Yellow (YELLOW) Urine Appearance Clear (CLEAR,HAZY) Urine pH 7.0 (5.0-8.0) Urine Specific [place] 1.015 (1.003-1.035) Urine Protein Negativemg/dL (NEG,TRACE) Urine Glucose (UA) Negativemg/dL (NEGATIVE) Urine Ketones Negativemg/dL (NEGATIVE) Urine Occult Blood Negative (NEGATIVE) Urine Nitrite Negative (NEGATIVE) Urine Bilirubin Negative (NEGATIVE) Urine Urobilinogen Normalmg/dL (NORMAL) Urine Leukocyte Esterase Negative (NEGATIVE) Urine RBC 0-2/hpf (0-2) Urine WBC 0-5/hpf (0-5) Urine Epithelial Cells None/hpf (NONE-MOD) Urine Crystals None seen (NONE SEEN) Urine Bacteria None/hpf (NONE-FEW) Urine Hyaline Casts None/lpf (NONE) Urine Granular Casts None seen (NONE SEEN) Urine Waxy Casts None seen (NONE SEEN) Urine Red Blood Cell Casts None seen (NONE SEEN) Urine White Blood Cell Casts None seen (NONE SEEN) Urine Mucus Present (None Seen) Urine Trichomonas None seen (NONE SEEN) Urine Yeast None (NONE SEEN) Urinalysis Comment None Urine Culture Reflexed Not indicated Re-Eval/Medical Decision Med Decision/Clinical Course 26 year old male with LUQ abd pain and low grade fever. Exam and labs reassuring. No evidence of UTI, RUQ not tender, do not believe imaging indicated. Will treat with zofran and pepcid, follow up with primary care. Re-Evaluation/Progress : Time of Eval: 22:52 Patient Status: Moderate relief Re-Evaluation/Progress Note: Discussed results and plan for discharge. Patient understands and agrees to plan. All questions were addressed. Counseled Regarding: Diagnosis, Lab results, Need for follow-up, When/why to return to ED Patient Discharge & Departure Primary Impression: Abdominal pain Abdominal location: left upper quadrant Qualified Code: R10.12 - Left upper quadrant pain Disposition: Home Discharge Condition All VS Reviewed: Yes Condition: Stable Patient Instructions: Acute Abdominal Pain (ED) Additional Instructions: Emergency department evaluation tonight including any, examination labs and review of past records. We treated you with IV fluids, nausea medications and antacids. No serious cause for abdominal pain is identified. It is possible that episodic abdominal pain and vomiting is related to marijuana use. We advised discontinuing the use of marijuana. May use ondansetron as needed for nausea and vomiting, take Pepcid 20 mg twice daily for 2 weeks. Follow up at [facility] for further evaluation, call or make an appointment. Referrals: [facility] ([facility]P) Coltenibe Attestation Portions of this note were transcribed by Liv Torres. I, Dr. Carballo personally performed the history, physical exam and medical decision-making; I reviewed and confirmed the accuracy of the information in the transcribed note. Signed by:Letha Canada, 05/04/17 copies to: [facility] Donald L MD May 04, 2017 20:16 Dayanara Torres May 04, 2017 20:26
[2017-05-04] MEDS ORDERED: 0.9% Sodium Chloride 1,000 ML IV ONE (20:35)
[2017-05-04] MEDS ORDERED: Ondansetron 2 mg/mL 2 mL Inj IVPUSH ONE (20:35)
[2017-05-04] MEDS ORDERED: Pantoprazole 40 mg ER24 Tablet PO ONE (20:35)
[2017-05-04 20:54] LABS: APPEARANCE,URINE CLEAR (CLEAR,HAZY); COLOR,URINE YELLOW (YELLOW); OCCULT BLOOD,URINE NEGATIVE (NEGATIVE); UROBILINOGEN,URINE NORMAL (NORMAL)
[2017-05-04] MEDS ORDERED: ONDA4TAB12 PO (22:57)
[2017-05-04] MEDS ORDERED: FAMO20T PO (22:57)
[2017-05-04 23:06] VITALS: BP 115/69; PULSE 85; RESP 16; O2SAT 98
[2017-05-04 23:43] VITALS: BP 115/69; PULSE 85; RESP 16; O2SAT 98
== END 2017-05-04 23:45 | disposition home or self-care (01) ==
LOC: SED 18:50
DX: R10.12 Left upper quadrant pain (principal); R51 Headache; R30.0 Dysuria; R50.9 Fever, unspecified; F17.200 Nicotine dependence, unspecified, uncomplicated
CPT/HCPCS: 36415; 80053; 81000; 83690; 83735; 85025; 96361; 96374; 99284; J2405; J7030

== ENCOUNTER 2017-06-05 08:50 | Emergency (ER) | payer SELFPAY ==
[~2017-06-05] VITALS: Ht 167.6 cm; Wt 70.5 kg
[~2017-06-05 08:50] MED LIST changes: +FAMO20T PO; -IBUP800T28 PO; +ONDA4TAB12 PO; -SULF1TAB35 PO
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
[2017-06-05 09:05] VITALS: BP 130/90; PULSE 63; RESP 18; O2SAT 97
[2017-06-05] MEDS ORDERED: Sucralfate 100 mg/mL 10 mL Suspension PO ONE (09:25)
[2017-06-05] MEDS ORDERED: MetoCLOpramide 5 mg/mL 2 mL Inj IM ONE (09:25)
[2017-06-05] MEDS ORDERED: NPH10OT1A AFFECT_EAR (11:37)
[2017-06-05] MEDS ORDERED: METO-301 PO (11:37)
[2017-06-05] MEDS ORDERED: SUCR1ORA2 PO (11:37)
[2017-06-05 11:54] VITALS: BP 112/56; PULSE 57; RESP 16; O2SAT 99
== END 2017-06-05 11:55 | disposition home or self-care (01) ==
LOC: SED 08:50
DX: H60.502 Unspecified acute noninfective otitis externa, left ear (principal); R10.84 Generalized abdominal pain; F12.10 Cannabis abuse, uncomplicated; Z90.89 Acquired absence of other organs; Z87.891 Personal history of nicotine dependence
CPT/HCPCS: 96372; 99284; J1885; J2765

== ENCOUNTER 2017-06-16 07:54 | Emergency (ER) | payer SELFPAY ==
[~2017-06-16] VITALS: Ht 167.6 cm; Wt 68.2 kg
[~2017-06-16 07:54] MED LIST changes: +METO-301 PO; +NPH10OT1A AFFECT_EAR; +SUCR1ORA2 PO
[2017-06-16 07:56] VITALS: BP 115/76; PULSE 64; RESP 16; O2SAT 100
--- NOTE | 2017-06-16 08:07 | ED.REPORT ---
HPI-Chest Pain Under 40 Date of Service Jun 16, 2017 ED Provider: Huseyin Dahl MD Pt is a 26 year old male with a history of self-reported hyperlipidemia who presents to the ED complaining of left-sided chest pain onset three days. He describes his pain as a worsening "muscle cramping" that occurs every 5-10 minutes. Pt rates the severity now at 7/10, and 8/10 at its worst. He reports that his symptoms are making him have nightmares because he's afraid he is having a heart attack. Pt states that he noticed his symptoms after he was playing basketball. Additional symptoms include SOB during the chest pain episodes and mild diaphoresis with his nightmares. He denies nausea, lower leg edema, fever, or cough. He took aspirin last night for his pain. Nursing Notes Stated Complaint: CHEST PAIN Chief Complaint: Chest Pain Nursing Notes Reviewed: Yes ([employer], [employer] not reconciled) Allergies: Coded Allergies: No Known Allergies (Unverified , 06/16/17) Scheduled Famotidine (Pepcid) 20 Mg Tablet 20 MG PO BID Neomycin/Polymyxin B Sulf/Hc (Wivcptwl-Uqbuawupe-Dh Ear Susp) 10 Ml Drops.susp 5 DROP AFFECT_EAR TID Use as directed until the symptoms resolve +2 additional days. Ondansetron ODT (Ondansetron ODT) 4 Mg Tab.rapdis 4 MG PO QID Sucralfate Susp (Carafate Susp) 1 Gm/10 Ml Oral.susp 1 GM PO QID Take as needed for abdominal discomfort. Scheduled PRN Metoclopramide (Reglan) 10 Mg Tablet 10 MG PO QID PRN PRN Headache Also effective for nausea. General Time Seen by MD: 07:57 Chief Complaint Chest pain (L-sided) Hx Obtained From: Patient Arrived By: Walk-in Sudden in Onset?: No Onset Occurred: 3 days ago Symptom Duration: Constant Location: : Chest left Quality: Painful Severity: Current: Pain level 7 out of 10 Severity: Maximum: Pain level 8 out of 10 Recent Healthcare: Recent doctor visit Similar Sx Previous: No Risk Factors )( CAD Risk Stratification Hyperlipidemia Smoking Risk factors reviewed )( PE Risk Stratification Risk factors reviewed, No risk factors Past Medical History Past Medical History h/o cellulitis Costochondritis Genital herpes H. Pylori 3 years ago on 9/15/17 Reports: Hyperlipidemia Past Surgical History Reports: Appendectomy Family History Grandfather had heart attack in his 50's Smoking History Light Tobacco Smoker Social History Alcohol Use: "Social" Drug Use: Denies drug use Occupation lives with girlfriend, no work or school at this time 01/04/2017 Ambulatory Status Independent Review of Systems Nightmares from symptoms Constitutional: Denies: Fever Respiratory: Reports: Shortness of breath (mild during spasm episodes ), Denies: Non-productive cough, Prod cough, clear Cardiovascular: Reports: Chest pain (L-sided) GI: Denies: Nausea Musculoskeletal: Denies: Extremity swelling Skin: Reports Diaphoresis (mild with nightmares ) Complete sys rev & neg: except as marked. Physical Exam Initial Vital Signs Vital Signs (First) Date Time Temp Pulse Resp B/P Pulse Ox O2 Delivery O2 Flow Rate FiO2 06/16/17 07:56 36.4 64 16 115/76 100 Room Air Initial VS: Reviewed, Vital signs normal Head / Eyes: Atraumatic, Normocephalic Neck: Supple, Full range of motion Extremities: Vascular intact, Neuro intact, No swelling, No tenderness Skin: Warm, Dry, No cyanosis Neurologic: Alert, Oriented, Nonfocal Psychiatric: Mood/affect normal, Behavior normal, Normal thought content General/Constitutional: Awake, Alert Appearance / Presentation: Positive: Uncomfortable Respiratory / Chest: Atraumatic, Breath sounds NL, Breath sounds = bilat, No respiratory distress No PE findings Cardiovascular: Heart rate NL, Regular rhythm, Heart sounds NL No DVT findings Interpretation & Diagnostics Lab Results Interpretation Result Diagram: 06/16/17 0843 06/16/17 0843 Test 06/16/17 08:43 White Blood Count 6.7th/mm3 (3.8-10.1) Red Blood Count 5.22mil/mm3 (4.40-5.80) Hemoglobin 14.9g/dL (13.8-17.2) Hematocrit 42.1% (41.0-50.0) Mean Corpuscular Volume 80.7fL (81-100) Mean Corpuscular Hemoglobin 28.5pg (27.0-35.0) Mean Corpuscular Hemoglobin Concent 35.4% (32.0-37.0) Red Cell Distribution Width 12.8% (12.3-15.4) Platelet Count 319bil/L (150-400) Neutrophils (%) (Auto) 46.4% (40-74) Lymphocytes (%) (Auto) 40.3% (14-46) Monocytes (%) (Auto) 10.4% (4-12) Eosinophils (%) (Auto) 2.2% (0-5) Basophils (%) (Auto) 0.3% (0-3) Sodium Level 137mEq/L (134-144) Potassium Level 4.3mEq/L (3.5-5.2) Chloride Level 101mEq/L (97-108) Carbon Dioxide Level 21mmol/L (18-29) Blood Urea Nitrogen 11mg/dL (6-20) Creatinine 0.74mg/dL (0.76-1.27) Estimat Glomerular Filtration Rate 138mL/min (>59) Glucose Level 106mg/dL (60-99) Calcium Level 8.9mg/dL (8.5-10.1) Total Bilirubin 0.4mg/dL (0.0-1.2) Aspartate Amino Transf (AST/SGOT) 28U/L (0-50) Alanine Aminotransferase (ALT/SGPT) 45U/L (0-44) Alkaline Phosphatase 87U/L (25-150) Troponin T 0.010ug/L (0.0-0.011) Total Protein 7.5g/dL (6.4-8.4) Albumin 4.3g/dL (3.4-5.0) Lab Results Interpretation: CBC normal CMP normal Troponin nl (after 3days, serial markers not indicated) lipid level pending - patient advised of need to F/U for results ECG Interpretation ECG Interpretation: Sinus rhythm, rate 55 Time: 08:06 Interpreted by: ED physician X-Ray Chest Interpretation Chest Xray Interpretation: IMPRESSION: Normal for age, source of chest pain is not seen. Dictated by: Ryan Lpóez M.D. on 06/16/2017 at 8:43 Approved by: Ryan López M.D. on 06/16/2017 at 8:43 View: AP & lat Interpretation / Wet Read by: Interpret - Radiologist Re-Eval/Medical Decision Med Decision/Clinical Course This is a 26-year-old male presents with 3 days of left-sided chest discomfort that occurred following a basketball game. He became increasingly concerned that it could be his heart, although symptoms are very atypical, nonexertional, as he reports that several years ago in [place] he had blood work drawn that indicated that he has "high cholesterol". Interestingly he described this blood work is being drawn for component of abdominal pain and being ultimately diagnosed with H. pylori, so it is not entirely clear that his understanding of the laboratory tests being involved is correct. He is in a smoker, denies substance abuse, has no major family history although there is a grandmother with a history of heart disease in her 60s. There are no features or clinical history to suggest this probability of pulmonary embolus. The patient appears anxious, but declines medicine. His lungs are clear, heart tones normal-no signs of heart failure. Is no fever, cough, hemoptysis. EKG is normal. Chest x-ray two-view is normal. Patient's been fasting overnight, given he does not have lipids and much of his concernover having alleged high cholesterol level, which she's never been on medicine-lipid panel has been drawn. As explained that the lipid panel will not come back, but his other blood work was normal. Not finding evidence of syndrome , the patient's pretest probability is extremely low and his heart score is 1. Reassurance is provided, patient's entirely comfortable with this. He is being discharged in good condition. Source of Hx: Old records Re-Evaluation/Progress : Time of Eval: 09:11 Patient Status: Condition improved Re-Evaluation/Progress Note: Patient rechecked. Discussed plan for discharge. Patient understands and agrees with plan. F/U instructions and RTER warnings given. All questions addressed at this time. Differential Diagnosis: Positive: Chest pain, acute, Negative: Acute coronary syndrome, Anxiety disorder, Aortic dissection, Aortic stenosis, Asthma exacerbation, Dysrhythmia, Esophageal rupture, Gun shot wound chest, Pneumomediastinum, Pneumonia, Pneumothorax, Pulmonary edema, Pulmonary embolism, Stab wound chest Counseled Regarding: Diagnosis, Lab results, Need for follow-up, When/why to return to ED Discharge & Departure Primary Impression: Chest pain Chest pain type: unspecified Qualified Code: R07.9 - Chest pain, unspecified Disposition: Home Discharge Condition All VS Reviewed: Yes Condition: Stable Additional Instructions: 1. A dangerous cause of your chest pain was not identified. Your EKG was normal with no findings to suggest a heart attack. Your chest x-ray was also normal with no signs of pneumothorax or other dangerous condition. 2. Activities as tolerated, symptoms are expected to improve with time. 3. We have drawn a cholesterol level today given the reported history of high lipids before. This blood test takes some time. You can call back later today or tomorrow at [phone] for results. 4. Return if new or worsening symptoms Referrals: [facility] (PCP) Scribe Attestation Portions of this note were transcribed by Mira Barnes. I, Dr. Dahl, personally performed the history, physical exam and medical decision-making; I reviewed and confirmed the accuracy of the information in the transcribed note. Signed by: Letha Rivera, 06/16/17. copies to: [facility] Matthew F MD Jun 16, 2017 08:07 Mira Barnes Jun 16, 2017 08:11
[2017-06-16 08:36] VITALS: BP 118/75; PULSE 66; RESP 16; O2SAT 100
--- NOTE | 2017-06-16 08:45 | DRSVH ---
PROCEDURE: X-RAY CHEST, TWO VIEWS ([id number]) INDICATIONS: CHEST PAIN TECHNIQUE: 2 views of the chest were acquired. COMPARISON: None. FINDINGS: Surgical changes and devices: None. Lungs and pleura: No pleural effusions or pneumothorax. Lungs are clear. Mediastinum: Mediastinal contours are normal. Heart size is normal. Bones and chest wall: No suspicious bony abnormalities. Soft tissues appear unremarkable. IMPRESSION: Normal for age, source of chest pain is not seen. Dictated by: Ryan López M.D. on 06/16/2017 at 8:43 Approved by: Ryan López M.D. on 06/16/2017 at 8:43
[2017-06-16 08:54] LABS: BASOPHILS % (AUTO) 0.3 % (0-3); EOSINOPHILS % (AUTO) 2.2 % (0-5); MONOCYTES % (AUTO) 10.4 % (4-12); Mean Corpuscular Hemoglobin 28.5 pg (27.0-35.0); Mean Corpuscular Volume 80.7 fL (81-100); NEUTROPHILS % (AUTO) 46.4 % (40-74); Platelet Count 319 bil/L (150-400)
[2017-06-16 09:21] LABS: TROPONIN T 0.01 ug/L (0.0-0.011)
== END 2017-06-16 09:38 | disposition home or self-care (01) ==
LOC: SED 07:54
DX: R07.9 Chest pain, unspecified (principal); F41.9 Anxiety disorder, unspecified; R06.02 Shortness of breath; E78.5 Hyperlipidemia, unspecified; F17.200 Nicotine dependence, unspecified, uncomplicated; Z90.89 Acquired absence of other organs